=== PATIENT | male | born 1985 | race Caucasian/White ===

== ENCOUNTER 2019-10-05 04:21 | Inpatient (IN) | payer MEDICAID ==
[2019-10-05] VITALS (15 sets, daily range): BP systolic 123–147; BP diastolic 79–97
[~2019-10-05] VITALS: Ht 160 cm; Wt 76.0 kg
[~2019-10-05 04:21] MED LIST: BENZ-16 PO; POTA20TA19 PO
[2019-10-05] MEDS ORDERED: morphine 4 MG/ML inj SYRINge IV PRN (04:30)
[2019-10-05] MEDS ORDERED: ringers solution, lactated 1000ml IV soln IV ONE (04:30)
[2019-10-05] MEDS ORDERED: LIDOcaine 1% W/epiNEPHrine 1:100,000 20ml vial SQ ONE (04:30)
[2019-10-05] MEDS ORDERED: sodium bicarbonate (8.4%) inj. 100 MEQ in sodium chloride 0.45% 1,000 ML IV ONE (04:35)
[2019-10-05 04:53] LABS: BASOPHILS % (AUTO) 0.1 % (0-1); EOSINOPHILS % (AUTO) 0 % (0-6); HEMATOCRIT 43.7 % (42.0-52.0); HEMOGLOBIN 15.4 g/dl (14.0-17.9); LYMPHOCYTES # (AUTO) 0.6 X10'3 (1.1-4.8); LYMPHOCYTES % (AUTO) 3.1 % (21-51); MEAN CORPUSCULAR HEMOGLOBIN 32.1 PG (27.0-31.0); MEAN CORPUSCULAR HGB CONC 35.1 g/dL (33.0-36.5); MEAN CORPUSCULAR VOLUME 91.5 FL (78-98); MEAN PLATELET VOLUME 9.1 FL (7.4-10.4); MONOCYTES # (AUTO) 1.7 X10'3 (0-0.9); MONOCYTES % (AUTO) 9.2 % (2-12); NEUTROPHILS # (AUTO) 16.1 X10'3 (1.8-7.7); NEUTROPHILS % (AUTO) 87.6 % (42-75); PLATELET COUNT 195 X10'3 (140-440); RED BLOOD COUNT 4.78 X10'6 (4.70-6.10); RED CELL DISTRIBUTION WIDTH 13.4 % (11.5-14.5); WHITE BLOOD COUNT 18.4 X10'3 (4.5-11.0)
[2019-10-05 05:03] LABS: ALANINE AMINOTRANSFERASE 441 U/L (12-78); ALBUMIN 4.3 G/DL (3.4-5.0); ALBUMIN/GLOBULIN RATIO 1.1 (1.1-1.5); ALKALINE PHOSPHATASE 73 IU/L (46-116); ANION GAP 22 (8-16); BLOOD UREA NITROGEN 104 MG/DL (7-18); BUN/CREATININE RATIO 14.6 (5.4-32.0); CALCIUM 6.7 MG/DL (8.5-10.1); CHLORIDE 83 MMOL/L (99-107); CREATININE 7.12 MG/DL (0.60-1.10); GLUCOSE 119 MG/DL (70-104); POTASSIUM 5.5 MMOL/L (3.5-5.1); SODIUM 123 MMOL/L (135-145); TOTAL PROTEIN 8.2 G/DL (6.4-8.2); eGFR 9 ML/MIN
[2019-10-05 05:08] LABS: MAGNESIUM 3.2 MG/DL (1.5-2.4)
[2019-10-05] MEDS ORDERED: TETanus/Pertussis (Acell)/Diphther VAC/PF (Tdap-Adult) 0.5ml syringe IMVAC ONE (05:25)
[2019-10-05] MEDS ORDERED: CefTRIAXone 2gm/D5W 50ml 50 ML IV ONE (05:30)
[2019-10-05 05:37] LABS: ETHANOL < 0.010 GM/DL (0.0-0.010)
[2019-10-05 05:38] LABS: ASPARTATE AMINO TRANSFERASE 1324 U/L (10-37)
[2019-10-05] MEDS: SODIUM CHLORIDE 0.45% IV SCH ×3 (06:12→20:08)
[2019-10-05] MEDS: SODIUM BICARBONATE IV SCH ×3 (06:12→20:08)
[2019-10-05] MEDS ORDERED: acetaminophen 325mg tablet PO PRN ×2 (06:30)
[2019-10-05] MEDS ORDERED: LORazepam 2 mg/ml vial IV PRN (06:30)
[2019-10-05] MEDS ORDERED: sodium bicarbonate (8.4%) inj. 150 MEQ in dextrose 5%-water 1,000 ML IV SCH (06:30)
[2019-10-05] MEDS ORDERED: ondansetron/PF 4mg/2ml inj IV PRN (06:30)
[2019-10-05] MEDS ORDERED: acetaminophen 650mg rectal suppository RC PRN (06:30)
--- NOTE | 2019-10-05 06:30 | NUR ---
SBAR received from MISBAH RN. Pt resting in bed. at bedside. Pt has been refusing F/C placement, education and rationale provided but pt continue to refuse. Labs drawn and sent.
[2019-10-05 06:32] LABS: CREATINE KINASE 77585 U/L (39-308)
[2019-10-05 07:13] LABS: PARTIAL THROMBOPLASTIN TIME 26 SECONDS (22-32)
[2019-10-05] MEDS ORDERED: calcium gluconate inj. 1 GM in normal saline 100ml IV soln 90 ML IV ONE ×2 (07:15→21:35)
[2019-10-05] MEDS ORDERED: ESCI20TA38 PO (07:19)
[2019-10-05] MEDS ORDERED: HYDR-3686 PO (07:19)
[2019-10-05] MEDS ORDERED: LORAZEPAM (07:19)
[2019-10-05 07:30] LABS: ALBUMIN 3.4 G/DL (3.4-5.0); ANION GAP 21 (8-16); BLOOD UREA NITROGEN 104 MG/DL (7-18); BUN/CREATININE RATIO 16.2 (5.4-32.0); CHLORIDE 86 MMOL/L (99-107); CREATININE 6.43 MG/DL (0.60-1.10); GLUCOSE 93 MG/DL (70-104); POTASSIUM 5.1 MMOL/L (3.5-5.1); SODIUM 124 MMOL/L (135-145); TOTAL CARBON DIOXIDE 17.2 MMOL/L (24-32); eGFR 10 ML/MIN
[2019-10-05 07:32] LABS: CALCIUM 5.9 MG/DL (8.5-10.1); PHOSPHORUS 11.2 MG/DL (2.3-4.5)
[2019-10-05] MEDS: docusate sod 100mg capsule PO SCH ×2 (08:00→20:01)
[2019-10-05] MEDS: silver sulfadiazine cream 400gm jar TP SCH (08:00)
--- NOTE | 2019-10-05 08:30 | NUR ---
Pt arrived from ED via gurney. Pt requested hygiene supplies. Vitals obtained, pt left to wash self with warm wash clothes. Pt states that he has mild pain from his muniz and complains of bilateral feet pain.
[2019-10-05] MEDS ORDERED: LORA-269 PO (09:35)
[2019-10-05] MEDS: CefTRIAXone 2gm/D5W 50ml 50 ML IV SCH (09:58)
[2019-10-05] MEDS: heparin, porcine 5000 units/ml vial SQ SCH ×2 (10:00→20:02)
[2019-10-05] MEDS: famotidine 20mg tablet PO SCH ×2 (10:00→20:01)
--- NOTE | 2019-10-05 13:20 | NUR ---
Attempted to place 16 Fr Faria catheter, encountered significant resistance, pt reported pain. Reported to Dr. Sims, received orders for Coude' Cath placement.
--- NOTE | 2019-10-05 13:40 | NUR ---
Pt stood up at bedside, water left running in room sink. Pt able to void in urinal 520 mL brown urine.
[2019-10-05 14:08] LABS: TOTAL PROTEIN,URINE RANDOM 150.4 MG/DL
[2019-10-05 14:11] LABS: URINE AMPHETAMINE SCREEN POSITIVE (Neg); URINE BARBITUATE SCREEN NEGATIVE (Neg); URINE BENZODIAZEPINES SCREEN NEGATIVE (Neg); URINE CANNABINOID SCREEN NEGATIVE (Neg); URINE COCAINE SCREEN NEGATIVE (Neg); URINE METHADONE SCREEN NEGATIVE (Neg); URINE OPIATE SCREEN POSITIVE (Neg); URINE PHENCYCLIDINE SCREEN NEGATIVE (Neg)
[2019-10-05 14:12] LABS: CLARITY,URINE TURBID (Clear); COLOR,URINE YELLOW (Yellow); GLUCOSE, URINE NEGATIVE (Neg); KETONES,URINE NEGATIVE (Neg); LEUKOCYTE ESTERASE ,URINE NEGATIVE (Neg); NITRITES, URINE NEGATIVE (Neg); OCCULT BLOOD,URINE LARGE (Neg); PH,URINE 5.5 (4.8-8.0); PROTEIN,URINE 100 mg/dl (Neg); UROBILINOGEN,URINE 0.2 E.U/dL (0.2-1.0)
[2019-10-05 14:16] LABS: UA COLLECTION TYPE CLN CATCH MIDSTREAM
[2019-10-05 14:33] LABS: FINE GRANULAR CAST 0-3 /LPF (NEGATIVE); MUCUS STRANDS NONE SEEN /LPF (Neg); SQUAMOUS EPITHELIAL CELL,UR NONE SEEN /LPF (FEW); TRANSITIONAL EPI CELLS,URINE FEW /HPF
[2019-10-05 14:36] LABS: AMORPHOUS URATES 4+; RENAL CELLS, URINE MODERATE /HPF
[2019-10-05 14:37] LABS: BACTERIA,URINE NONE SEEN /HPF (Neg); WBC,URINE 0-4 /HPF (0-4)
[2019-10-05 14:38] LABS: CAL OXALATE CRYSTALS FEW /HPF (NEGATIVE)
[2019-10-05 14:55] LABS: UA EOSINOPHILS NO EOS /HPF
[2019-10-05 15:07] LABS: ALBUMIN 3.3 G/DL (3.4-5.0); ANION GAP 21 (8-16); BLOOD UREA NITROGEN 110 MG/DL (7-18); BUN/CREATININE RATIO 16.9 (5.4-32.0); CHLORIDE 81 MMOL/L (99-107); CREATININE 6.51 MG/DL (0.60-1.10); GLUCOSE 111 MG/DL (70-104); POTASSIUM 5.3 MMOL/L (3.5-5.1); SODIUM 123 MMOL/L (135-145); TOTAL CARBON DIOXIDE 21.1 MMOL/L (24-32); eGFR 10 ML/MIN
[2019-10-05 15:09] LABS: PHOSPHORUS 10.6 MG/DL (2.3-4.5)
[2019-10-05 15:15] LABS: CALCIUM 5.6 MG/DL (8.5-10.1)
--- NOTE | 2019-10-05 18:19 | NUR ---
Problems reprioritized. Patient report given, questions answered & plan of care reviewed with SANJANA Sibley.
--- NOTE | 2019-10-05 18:22 | NUR ---
assumed care from Martinez ALLAN no questions or concerns after assuming care
--- NOTE | 2019-10-05 19:15 | NUR ---
patient "not in mood for dinner." put in refrigerator will ask patient later if they want to eat dinner
[2019-10-05 19:22] LABS: ANION GAP 19 (8-16); BLOOD UREA NITROGEN 115 MG/DL (7-18); BUN/CREATININE RATIO 17.1 (5.4-32.0); CHLORIDE 84 MMOL/L (99-107); CREATININE 6.74 MG/DL (0.60-1.10); GLUCOSE 92 MG/DL (70-104); POTASSIUM 4.8 MMOL/L (3.5-5.1); SODIUM 124 MMOL/L (135-145); TOTAL CARBON DIOXIDE 20.8 MMOL/L (24-32); eGFR 9 ML/MIN
[2019-10-05 19:31] LABS: CALCIUM < 5.0 MG/DL (8.5-10.1)
--- NOTE | 2019-10-05 21:14 | NUR ---
patient in bed eyes closed rr even un labored no observable s/s of acute stress at this time will continue to monitor
--- NOTE | 2019-10-05 21:34 | NUR ---
called thuy CESPEDES due to the ionized calcium results 0.55, waiting for orders to replace
--- NOTE | 2019-10-05 23:41 | NUR ---
PATIENT UP USING URINAL RR EVEN UN LABORED REFUSING PAIN MEDICATION, PATIENT SHOWING MILD PAIN BEHAVIOR BUT WHEN ASKED IF THEY NEED SOMETHING FOR THE PAIN PATIENT STATES" NO I AM GOOD I WANT TO TRY AND NOT TAKE ANY NARCS." I VERBALIZED TO THE PATIENT THERE IS ORDER FOR TYLENOL, PATIENT STATES " THANKS BUT I AM GOOD NOW, I WILL HIT CALL LIGHT IF I NEED THE TYLENOL I AM GOING TO TRY AND SLEEP." NO OBSERVABLE S/S OF ACUTE STRESS WILL CONTINUE TO MONITOR
[2019-10-06] VITALS (24 sets, daily range): BP systolic 122–147; BP diastolic 74–96
--- NOTE | 2019-10-06 01:52 | NUR ---
PATIENT IN BED SUPINE WITH EYES CLOSED RR EVEN UN LABORED PATIENT DENYING ANY NEED TO USE PAIN MEDICATION, NO OBSERVABLE S/S OF ACUTE STRESS AT THIS TIME WILL CONTINUE TO MONITOR
[2019-10-06 02:32] LABS: ALANINE AMINOTRANSFERASE 351 U/L (12-78); ALBUMIN 2.9 G/DL (3.4-5.0); ALBUMIN/GLOBULIN RATIO 0.9 (1.1-1.5); ALKALINE PHOSPHATASE 49 IU/L (46-116); ANION GAP 20 (8-16); ASPARTATE AMINO TRANSFERASE 831 U/L (10-37); BILIRUBIN,TOTAL 0.6 MG/DL (0.1-1.0); BLOOD UREA NITROGEN 118 MG/DL (7-18); BUN/CREATININE RATIO 17.5 (5.4-32.0); CHLORIDE 83 MMOL/L (99-107); CREATININE 6.73 MG/DL (0.60-1.10); GLUCOSE 109 MG/DL (70-104); MAGNESIUM 2.4 MG/DL (1.5-2.4); POTASSIUM 5.3 MMOL/L (3.5-5.1); SODIUM 125 MMOL/L (135-145); eGFR 9 ML/MIN
[2019-10-06 02:38] LABS: PHOSPHORUS 9.9 MG/DL (2.3-4.5)
[2019-10-06 02:40] LABS: CALCIUM < 5.0 MG/DL (8.5-10.1)
[2019-10-06] MEDS ORDERED: calcium gluconate inj. 1 GM in normal saline 100ml IV soln 90 ML IV ONE ×2 (02:45→03:20)
[2019-10-06 03:12] LABS: CREATINE KINASE 53758 U/L (39-308)
[2019-10-06] MEDS: SODIUM CHLORIDE 0.45% IV SCH ×3 (03:12→20:23)
[2019-10-06] MEDS: SODIUM BICARBONATE IV SCH ×3 (03:12→20:23)
--- NOTE | 2019-10-06 04:36 | NUR ---
PATIENT IN BED ON LEFT SIDE EYES CLOSED RR EVEN UN LABORED NO OBSERVABLE S/S OF ACUTE STRESS AT THIS TIME
[2019-10-06 05:18] LABS: BASOPHILS % (AUTO) 0.2 % (0-1); EOSINOPHILS % (AUTO) 0 % (0-6); HEMATOCRIT 36.9 % (42.0-52.0); HEMOGLOBIN 13.1 g/dl (14.0-17.9); LYMPHOCYTES # (AUTO) 0.4 X10'3 (1.1-4.8); LYMPHOCYTES % (AUTO) 6.7 % (21-51); MEAN CORPUSCULAR HEMOGLOBIN 32.7 PG (27.0-31.0); MEAN CORPUSCULAR HGB CONC 35.6 g/dL (33.0-36.5); MEAN CORPUSCULAR VOLUME 91.8 FL (78-98); MEAN PLATELET VOLUME 8.9 FL (7.4-10.4); MONOCYTES # (AUTO) 0.9 X10'3 (0-0.9); MONOCYTES % (AUTO) 15.4 % (2-12); NEUTROPHILS # (AUTO) 4.3 X10'3 (1.8-7.7); NEUTROPHILS % (AUTO) 77.7 % (42-75); PLATELET COUNT 118 X10'3 (140-440); RED BLOOD COUNT 4.01 X10'6 (4.70-6.10); RED CELL DISTRIBUTION WIDTH 13.5 % (11.5-14.5); WHITE BLOOD COUNT 5.6 X10'3 (4.5-11.0)
[2019-10-06 05:59] LABS: PLATELET ESTIMATE DECREASED
--- NOTE | 2019-10-06 06:20 | NUR ---
SBAR TO HELEN ALLAN NO QUESTIONS OR CONCERNS AFTER SBAR
--- NOTE | 2019-10-06 06:30 | NUR ---
Patient in room CICU 2009. I have received report from SANJANA Sibley and had the opportunity to ask questions and assume patient care.
[2019-10-06] MEDS: silver sulfadiazine cream 400gm jar TP SCH (08:00)
[2019-10-06] MEDS: heparin, porcine 5000 units/ml vial SQ SCH ×2 (08:36→20:22)
[2019-10-06] MEDS: docusate sod 100mg capsule PO SCH ×2 (08:36→20:00)
[2019-10-06] MEDS: famotidine 20mg tablet PO SCH ×2 (08:37→20:21)
[2019-10-06] MEDS: CefTRIAXone 2gm/D5W 50ml 50 ML IV SCH (08:37)
[2019-10-06 09:52] LABS: BASOPHILS % (AUTO) 0.2 % (0-1); EOSINOPHILS % (AUTO) 0.1 % (0-6); HEMATOCRIT 37.4 % (42.0-52.0); HEMOGLOBIN 13.3 g/dl (14.0-17.9); LYMPHOCYTES # (AUTO) 0.3 X10'3 (1.1-4.8); LYMPHOCYTES % (AUTO) 4.7 % (21-51); MEAN CORPUSCULAR HEMOGLOBIN 32.5 PG (27.0-31.0); MEAN CORPUSCULAR HGB CONC 35.6 g/dL (33.0-36.5); MEAN CORPUSCULAR VOLUME 91.4 FL (78-98); MEAN PLATELET VOLUME 8.9 FL (7.4-10.4); MONOCYTES # (AUTO) 0.9 X10'3 (0-0.9); MONOCYTES % (AUTO) 15.5 % (2-12); NEUTROPHILS # (AUTO) 4.9 X10'3 (1.8-7.7); NEUTROPHILS % (AUTO) 79.5 % (42-75); PLATELET COUNT 127 X10'3 (140-440); RED BLOOD COUNT 4.09 X10'6 (4.70-6.10); RED CELL DISTRIBUTION WIDTH 13.6 % (11.5-14.5); WHITE BLOOD COUNT 6.1 X10'3 (4.5-11.0)
[2019-10-06 10:15] LABS: ALBUMIN 2.9 G/DL (3.4-5.0); ANION GAP 19 (8-16); BLOOD UREA NITROGEN 121 MG/DL (7-18); BUN/CREATININE RATIO 17.9 (5.4-32.0); CHLORIDE 85 MMOL/L (99-107); CREATININE 6.77 MG/DL (0.60-1.10); GLUCOSE 92 MG/DL (70-104); PHOSPHORUS 8.9 MG/DL (2.3-4.5); SODIUM 128 MMOL/L (135-145); TOTAL CARBON DIOXIDE 24.4 MMOL/L (24-32); eGFR 9 ML/MIN
[2019-10-06] MEDS ORDERED: LIDOcaine 2% 10ml TOPICAL JELLY (Urojet) MM ONE (10:30)
[2019-10-06 11:22] LABS: CREATINE KINASE 49334 U/L (39-308)
--- NOTE | 2019-10-06 12:30 | NUR ---
18 Fr Coude placed, 1300 mL dark yellow urine obtained, pt reports instant relief.
[2019-10-06 13:17] LABS: ALBUMIN 2.7 G/DL (3.4-5.0); ANION GAP 15 (8-16); BLOOD UREA NITROGEN 116 MG/DL (7-18); BUN/CREATININE RATIO 17.6 (5.4-32.0); CHLORIDE 86 MMOL/L (99-107); GLUCOSE 96 MG/DL (70-104); PHOSPHORUS 8.3 MG/DL (2.3-4.5); SODIUM 126 MMOL/L (135-145); eGFR 10 ML/MIN
[2019-10-06 14:10] LABS: CALCIUM < 5.0 MG/DL (8.5-10.1)
--- NOTE | 2019-10-06 18:14 | NUR ---
Problems reprioritized. Patient report given, questions answered & plan of care reviewed with SANJANA Sibley.
--- NOTE | 2019-10-06 18:15 | NUR ---
assumed care from Martinez ALLAN no questions or concerns after assuming care
[2019-10-06 20:05] LABS: ALBUMIN 2.8 G/DL (3.4-5.0); ANION GAP 17 (8-16); BLOOD UREA NITROGEN 118 MG/DL (7-18); BUN/CREATININE RATIO 18.7 (5.4-32.0); CHLORIDE 85 MMOL/L (99-107); GLUCOSE 110 MG/DL (70-104); PHOSPHORUS 7.4 MG/DL (2.3-4.5); POTASSIUM 4.7 MMOL/L (3.5-5.1); SODIUM 128 MMOL/L (135-145); TOTAL CARBON DIOXIDE 25.7 MMOL/L (24-32); eGFR 10 ML/MIN
[2019-10-06 20:09] LABS: CALCIUM < 5.0 MG/DL (8.5-10.1)
[2019-10-06] MEDS: lactobacillus rhamnosus 10,000 MMU CELLS/CAPSULE PO SCH (20:21)
--- NOTE | 2019-10-06 20:30 | NUR ---
PATIENT RESTING COMFORTABLY IN BED EYES CLOSED LYING ON LEFT SIDE RR EVEN UN LABORED NO OBSERVABLE S/S OF ACUTE STRESS AT THIS TIME WILL CONTINUE TO MONITOR
--- NOTE | 2019-10-06 22:30 | NUR ---
PATIENT ON BACK IN BED COVERS ON EYES CLOSED RR EVEN UN LABORED NO OBSERVABLE S/S OF ACUTE STRESS AT THIS TIME WILL CONTINUE TO MONITOR
[2019-10-07] VITALS (16 sets, daily range): BP systolic 125–155; BP diastolic 71–98
--- NOTE | 2019-10-07 00:36 | NUR ---
IN DRAWING PATIENTS RENAL PANEL APPEARS PATIENT IS IN GOOD MOOD FOLLOWING COMMANDS AND ASKING QUESTIONS ON HIS CARE AND HOW HE IS LOOKING APPEARS TO BE CONCERNED ABOUT HIS HEALTH, AFTER DISCUSSING WITH PATIENT AND UPDATING ON HI S KIDNEY STATUS HE STATED "THANK YOU FOR EMPLANING." PATIENTS RR EVEN UN LABORED NO OBSERVABLE S/S OF ACUTE STRESS AT THIS TIME WILL CONTINUE TO MONITOR
[2019-10-07 01:13] LABS: ALANINE AMINOTRANSFERASE 299 U/L (12-78); ALBUMIN 2.6 G/DL (3.4-5.0); ALBUMIN/GLOBULIN RATIO 0.8 (1.1-1.5); ALKALINE PHOSPHATASE 45 IU/L (46-116); ANION GAP 12 (8-16); ASPARTATE AMINO TRANSFERASE 567 U/L (10-37); BILIRUBIN,TOTAL 0.4 MG/DL (0.1-1.0); BLOOD UREA NITROGEN 114 MG/DL (7-18); BUN/CREATININE RATIO 18.7 (5.4-32.0); CHLORIDE 88 MMOL/L (99-107); GLUCOSE 106 MG/DL (70-104); MAGNESIUM 2.3 MG/DL (1.5-2.4); PHOSPHORUS 6.9 MG/DL (2.3-4.5); POTASSIUM 4.3 MMOL/L (3.5-5.1); SODIUM 130 MMOL/L (135-145); TOTAL CARBON DIOXIDE 29.7 MMOL/L (24-32); TOTAL PROTEIN 5.8 G/DL (6.4-8.2); eGFR 10 ML/MIN
[2019-10-07 01:20] LABS: CALCIUM < 5.0 MG/DL (8.5-10.1)
[2019-10-07 01:50] LABS: CREATINE KINASE 41378 U/L (39-308)
[2019-10-07 02:29] LABS: BASOPHILS % (AUTO) 0.1 % (0-1); EOSINOPHILS % (AUTO) 0 % (0-6); HEMATOCRIT 34.5 % (42.0-52.0); LYMPHOCYTES # (AUTO) 0.4 X10'3 (1.1-4.8); LYMPHOCYTES % (AUTO) 6.4 % (21-51); MEAN CORPUSCULAR HEMOGLOBIN 32.2 PG (27.0-31.0); MEAN CORPUSCULAR HGB CONC 34.8 g/dL (33.0-36.5); MEAN CORPUSCULAR VOLUME 92.5 FL (78-98); MEAN PLATELET VOLUME 9.1 FL (7.4-10.4); MONOCYTES % (AUTO) 15.5 % (2-12); NEUTROPHILS # (AUTO) 4.9 X10'3 (1.8-7.7); PLATELET COUNT 99 X10'3 (140-440); RED BLOOD COUNT 3.73 X10'6 (4.70-6.10); RED CELL DISTRIBUTION WIDTH 13.2 % (11.5-14.5); WHITE BLOOD COUNT 6.3 X10'3 (4.5-11.0)
--- NOTE | 2019-10-07 02:35 | NUR ---
PATIENT IN BED EYES CLOSED RR EVEN UN LABORED NO OBSERVABLE S/S OF ACUTE STRESS AT THIS TIME WILL CONTINUE TO MONITOR
[2019-10-07] MEDS: SODIUM BICARBONATE IV SCH ×3 (04:35→19:41)
[2019-10-07] MEDS: SODIUM CHLORIDE 0.45% IV SCH ×3 (04:35→19:41)
--- NOTE | 2019-10-07 04:57 | NUR ---
PATIENT IN BED SUPINE WITH HOB AT 45 DEGREES ASKED FOR SOME ICE WATER AND A SNACK, PATIENTS RR EVEN UN LABORED NO OBSERVABLE S/S OF ACUTE STRESS AT THIS TIME WILL CONTINUE TO MONITOR
--- NOTE | 2019-10-07 06:29 | NUR ---
SBAR TO GARRY ALLAN NO QUESTIONS OR CONCERNS AFTER ASSUMING CARE
[2019-10-07] MEDS ORDERED: lactulose 20gm/30ml cup PO PRN (06:30)
[2019-10-07 07:22] LABS: ALBUMIN 2.4 G/DL (3.4-5.0); ANION GAP 9 (8-16); BLOOD UREA NITROGEN 110 MG/DL (7-18); BUN/CREATININE RATIO 19.5 (5.4-32.0); CHLORIDE 91 MMOL/L (99-107); CREATININE 5.63 MG/DL (0.60-1.10); GLUCOSE 120 MG/DL (70-104); SODIUM 130 MMOL/L (135-145); TOTAL CARBON DIOXIDE 29.7 MMOL/L (24-32); eGFR 12 ML/MIN
[2019-10-07 07:35] LABS: CREATINE KINASE 32573 U/L (39-308)
[2019-10-07 07:40] LABS: CALCIUM < 5.0 MG/DL (8.5-10.1)
[2019-10-07] MEDS: silver sulfadiazine cream 400gm jar TP SCH (08:00)
[2019-10-07] MEDS: docusate sod 100mg capsule PO SCH ×2 (08:00→20:49)
[2019-10-07] MEDS: heparin, porcine 5000 units/ml vial SQ SCH ×2 (08:58→20:49)
[2019-10-07] MEDS: famotidine 20mg tablet PO SCH ×2 (08:58→20:49)
[2019-10-07] MEDS: lactobacillus rhamnosus 10,000 MMU CELLS/CAPSULE PO SCH ×2 (08:58→20:49)
[2019-10-07] MEDS: CefTRIAXone 2gm/D5W 50ml 50 ML IV SCH (08:58)
--- NOTE | 2019-10-07 10:30 | NUR ---
Patient refusing hourly blood pressure checks, stating "How does this help me rest and heal if it wakes me up every hour? This is ridiculous!". Patient allowing other vitals at this time. Patient allowing spot check blood pressure readings while awake. MD aware.
[2019-10-07] MEDS ORDERED: LORazepam 1 MG tablet PO PRN (10:55)
[2019-10-07] MEDS ORDERED: hydrOXYzine 25 MG tablet PO PRN (10:55)
[2019-10-07] MEDS: citalopram 20mg tablet PO SCH (11:01)
--- NOTE | 2019-10-07 13:11 | NUR ---
WOUND INFECTION EDUCATION PROVIDED BY WOUND CARE 1. Patient instructed to call their primary doctor, or go the ED immediately if any of the following symptoms occur: * Increased pain in wound * Increase in drainage from the wound * Redness in the skin surrounding the wound * Warmth in the skin surrounding the wound * Bleeding from the wound * Temperature of 101 or greater 2. If any of these occur while in the hospital tell a nurse immediately. Addendum: 10/07/19 at 1311 by John Juan RN Amended: Links added.
--- NOTE | 2019-10-07 13:47 | NUR ---
I have received report from Armando KAPLAN RN and had the opportunity to ask questions. Awaiting pt arrival to PCU.
--- NOTE | 2019-10-07 14:30 | NUR ---
Pt arrived on unit and settled in room 3024B. Vital signs taken and pain assessed, family present at the bedside. 2 RN skin check and physical assessment performed. Needs addressed, will continue to frequently round.
--- NOTE | 2019-10-07 16:19 | NUR ---
[place] documentation: I have reviewed and agree with all interventions, assessments performed and documented by SANJANA Odonnell. [facility] Medication Administration: For this medication-pass time frame, all medication were reviewed, dispensed, administered and documented per hospital policy by SANJANA Odonnell.
--- NOTE | 2019-10-07 18:10 | NUR ---
Problems reprioritized. Patient report given, questions answered & plan of care reviewed with Marbella ALLAN.
[2019-10-07] MEDS: tamsulosin 0.4mg capsule PO SCH (20:49)
[2019-10-07] MEDS: HYDROcodone/acetaminophen 5mg/325mg tablet PO PRN (20:52)
[2019-10-08] MEDS: SODIUM CHLORIDE 0.45% IV SCH ×2 (00:06→17:21)
[2019-10-08] MEDS: SODIUM BICARBONATE IV SCH ×2 (00:06→17:21)
[2019-10-08 03:00] VITALS: BP 146/76
[2019-10-08 06:00] VITALS: BP 164/90
[2019-10-08 06:06] LABS: BASOPHILS % (AUTO) 0 % (0-1); EOSINOPHILS % (AUTO) 0.6 % (0-6); HEMATOCRIT 30.6 % (42.0-52.0); HEMOGLOBIN 10.5 g/dl (14.0-17.9); LYMPHOCYTES # (AUTO) 0.6 X10'3 (1.1-4.8); LYMPHOCYTES % (AUTO) 9.4 % (21-51); MEAN CORPUSCULAR HEMOGLOBIN 32.4 PG (27.0-31.0); MEAN CORPUSCULAR HGB CONC 34.3 g/dL (33.0-36.5); MEAN CORPUSCULAR VOLUME 94.4 FL (78-98); MEAN PLATELET VOLUME 9.3 FL (7.4-10.4); MONOCYTES % (AUTO) 15.2 % (2-12); NEUTROPHILS % (AUTO) 74.8 % (42-75); PLATELET COUNT 89 X10'3 (140-440); RED BLOOD COUNT 3.24 X10'6 (4.70-6.10); RED CELL DISTRIBUTION WIDTH 13.4 % (11.5-14.5); WHITE BLOOD COUNT 6.7 X10'3 (4.5-11.0)
--- NOTE | 2019-10-08 06:16 | NUR ---
Problems reprioritized. Patient report given, questions answered & plan of care reviewed with Sapna ALLAN.
--- NOTE | 2019-10-08 06:21 | NUR ---
Patient in room PCU 3024. I have received report from Marbella ALLAN and had the opportunity to ask questions and assume patient care. All patient's needs met at this time.
[2019-10-08 07:09] LABS: ALANINE AMINOTRANSFERASE 233 U/L (12-78); ALBUMIN 2.4 G/DL (3.4-5.0); ALBUMIN/GLOBULIN RATIO 0.8 (1.1-1.5); ALKALINE PHOSPHATASE 59 IU/L (46-116); ANION GAP 7 (8-16); ASPARTATE AMINO TRANSFERASE 361 U/L (10-37); BILIRUBIN,TOTAL 0.4 MG/DL (0.1-1.0); BLOOD UREA NITROGEN 86 MG/DL (7-18); CHLORIDE 92 MMOL/L (99-107); GLUCOSE 99 MG/DL (70-104); MAGNESIUM 2.2 MG/DL (1.5-2.4); PHOSPHORUS 4.8 MG/DL (2.3-4.5); POTASSIUM 3.4 MMOL/L (3.5-5.1); SODIUM 134 MMOL/L (135-145); TOTAL PROTEIN 5.4 G/DL (6.4-8.2); eGFR 16 ML/MIN
[2019-10-08 07:45] LABS: CREATINE KINASE 25030 U/L (39-308)
[2019-10-08 07:48] LABS: CALCIUM 5.4 MG/DL (8.5-10.1)
[2019-10-08] MEDS: silver sulfadiazine cream 400gm jar TP SCH (08:00)
[2019-10-08] MEDS: citalopram 20mg tablet PO SCH (08:00)
[2019-10-08] MEDS: heparin, porcine 5000 units/ml vial SQ SCH ×2 (08:00→20:00)
[2019-10-08] MEDS: docusate sod 100mg capsule PO SCH ×2 (08:00→20:17)
[2019-10-08] MEDS: CefTRIAXone 2gm/D5W 50ml 50 ML IV SCH (08:51)
[2019-10-08] MEDS: famotidine 20mg tablet PO SCH ×2 (08:51→20:17)
[2019-10-08] MEDS: lactobacillus rhamnosus 10,000 MMU CELLS/CAPSULE PO SCH ×2 (08:52→20:17)
[2019-10-08] MEDS: HYDROcodone/acetaminophen 10/325mg tab PO PRN ×2 (09:00→17:31)
[2019-10-08 11:00] VITALS: BP 163/81
--- NOTE | 2019-10-08 11:52 | NUR ---
Student documentation: I have reviewed all interventions, assessments performed and documented by [facility]. Student Medication Administration: For this medication-pass time frame, all medication were reviewed, dispensed, administered and documented per hospital policy by [facility].
--- NOTE | 2019-10-08 12:15 | NUR ---
Removed patient's catheter with no complications, will continue to monitor for urine output.
[2019-10-08 15:00] VITALS: BP_SYST 128; BP_SYST 162; BP_DIAS 66; BP_DIAS 70
[2019-10-08 18:00] VITALS: BP 176/72
--- NOTE | 2019-10-08 18:26 | NUR ---
Problems reprioritized. Patient report given, questions answered & plan of care reviewed with Marbella ALLAN. All patient's needs met at this time.
[2019-10-08] MEDS: gabapentin 100mg capsule PO SCH (20:17)
[2019-10-08] MEDS: tamsulosin 0.4mg capsule PO SCH (20:17)
[2019-10-08 22:00] VITALS: BP 149/68
[2019-10-09 02:00] VITALS: BP 172/76
[2019-10-09 02:50] LABS: BASOPHILS % (AUTO) 0.1 % (0-1); EOSINOPHILS # (AUTO) 0.2 X10'3 (0-0.9); EOSINOPHILS % (AUTO) 2.8 % (0-6); HEMATOCRIT 30.5 % (42.0-52.0); HEMOGLOBIN 10.5 g/dl (14.0-17.9); LYMPHOCYTES # (AUTO) 0.9 X10'3 (1.1-4.8); LYMPHOCYTES % (AUTO) 13.7 % (21-51); MEAN CORPUSCULAR HEMOGLOBIN 32.4 PG (27.0-31.0); MEAN CORPUSCULAR HGB CONC 34.3 g/dL (33.0-36.5); MEAN CORPUSCULAR VOLUME 94.6 FL (78-98); MEAN PLATELET VOLUME 9.2 FL (7.4-10.4); MONOCYTES % (AUTO) 16.3 % (2-12); NEUTROPHILS # (AUTO) 4.3 X10'3 (1.8-7.7); NEUTROPHILS % (AUTO) 67.1 % (42-75); PLATELET COUNT 97 X10'3 (140-440); RED BLOOD COUNT 3.22 X10'6 (4.70-6.10); RED CELL DISTRIBUTION WIDTH 13.3 % (11.5-14.5); WHITE BLOOD COUNT 6.4 X10'3 (4.5-11.0)
[2019-10-09 02:59] LABS: ALANINE AMINOTRANSFERASE 239 U/L (12-78); ALBUMIN 2.5 G/DL (3.4-5.0); ALBUMIN/GLOBULIN RATIO 0.8 (1.1-1.5); ALKALINE PHOSPHATASE 64 IU/L (46-116); ANION GAP 3 (8-16); ASPARTATE AMINO TRANSFERASE 348 U/L (10-37); BILIRUBIN,TOTAL 0.3 MG/DL (0.1-1.0); BLOOD UREA NITROGEN 73 MG/DL (7-18); CHLORIDE 95 MMOL/L (99-107); CREATININE 2.92 MG/DL (0.60-1.10); GLUCOSE 97 MG/DL (70-104); MAGNESIUM 1.9 MG/DL (1.5-2.4); PHOSPHORUS 4.2 MG/DL (2.3-4.5); POTASSIUM 3.2 MMOL/L (3.5-5.1); SODIUM 136 MMOL/L (135-145); TOTAL CARBON DIOXIDE 38.1 MMOL/L (24-32); TOTAL PROTEIN 5.8 G/DL (6.4-8.2); eGFR 25 ML/MIN
--- NOTE | 2019-10-09 03:24 | NUR ---
Notified RUBINA Thornton regarding patient's PLT count of 89 and still being on SQ Heparin. Tonight's dose held d/t pt being at less than 50% of admit PLT count. Also notified him of patient's K of 3.2 which is down from 3.4 yesterday. Due to patient's creatinine still being elevated at 2.92 no new orders given
[2019-10-09 03:32] LABS: CREATINE KINASE 16867 U/L (39-308)
[2019-10-09 03:43] LABS: TOTAL CELLS COUNTED 100
[2019-10-09 03:44] LABS: PLATELET ESTIMATE DECREASED
--- NOTE | 2019-10-09 04:37 | NUR ---
Student Medication Administration: For this medication-pass time frame, all medication were reviewed, dispensed, administered and documented per hospital policy by Chasity MENJIVAR. Student documentation: I have reviewed and agree with all interventions, assessments performed and documented by Chasity MENJIVAR.
--- NOTE | 2019-10-09 06:04 | NUR ---
Problems reprioritized. Patient report given, questions answered & plan of care reviewed with Arsenio ALLAN.
--- NOTE | 2019-10-09 06:15 | NUR ---
Patient in room PCU 3024. I have received report from Marbella ALLAN and had the opportunity to ask questions and assume patient care.
[2019-10-09 06:56] VITALS: BP 166/71
[2019-10-09] MEDS: lactobacillus rhamnosus 10,000 MMU CELLS/CAPSULE PO SCH ×2 (07:46→20:08)
[2019-10-09] MEDS: docusate sod 100mg capsule PO SCH ×2 (07:46→20:00)
[2019-10-09] MEDS: gabapentin 100mg capsule PO SCH ×3 (07:46→20:08)
[2019-10-09] MEDS: famotidine 20mg tablet PO SCH ×2 (07:46→20:08)
[2019-10-09] MEDS: CefTRIAXone 2gm/D5W 50ml 50 ML IV SCH (07:47)
[2019-10-09] MEDS: HYDROcodone/acetaminophen 10/325mg tab PO PRN ×2 (07:49→20:11)
[2019-10-09] MEDS: SODIUM BICARBONATE IV SCH ×2 (07:51→23:27)
[2019-10-09] MEDS: SODIUM CHLORIDE 0.45% IV SCH ×2 (07:51→23:27)
[2019-10-09] MEDS: citalopram 20mg tablet PO SCH (07:59)
[2019-10-09] MEDS: heparin, porcine 5000 units/ml vial SQ SCH ×2 (08:00→20:00)
[2019-10-09] MEDS: silver sulfadiazine cream 400gm jar TP SCH (08:00)
[2019-10-09 11:00] VITALS: BP 195/90
--- NOTE | 2019-10-09 11:48 | NUR ---
Initial: Pt admit with VICTOR M probably d/t rhabdomyolysis per MD notes. VICTOR M improving per MD notes. Pt with muniz on admit. Per [facility] notes pt with partial thickness second degree muniz to arms, chest, and trunk of body. Pt currently on renal diet initially documented with 100% PO intake on admit that declined to 0-50% however has since improved and is now averaging 75-100% PO intake likely meeting nutrient needs with adequate protein for skin integrity. [facility] 10/08. No nutrition diagnosis at this time. Will continue to follow. Recommendations: 1) Continue renal diet with advancement to regular as medically indicated as renal function improves 2) Monitor need for ONS/additional protein 3) Routine bowel care Addendum: 10/09/19 at [address] Amended: Links added.
[2019-10-09] MEDS ORDERED: potassium CL 10mEq/100ml bag 100 ML IV PRN (12:55)
[2019-10-09] MEDS ORDERED: potassium Cl 20 mEq SR tablet PO PRN (12:55)
[2019-10-09] MEDS ORDERED: magnesium 4gm in 100ml NS 100 ML IV PRN (12:55)
--- NOTE | 2019-10-09 12:55 | NUR ---
Dr. Sims notified about Pt's blood pressures ranging 180-[address] Sims stated he will put an order in for it.
[2019-10-09] MEDS: potassium Cl 20 mEq SR tablet PO PRN ×3 (13:13→21:52)
[2019-10-09] MEDS: diltiazem CD 120mg capsule (once-daily) PO SCH (14:04)
[2019-10-09 15:00] VITALS: BP 140/72
[2019-10-09 18:00] VITALS: BP 142/86
--- NOTE | 2019-10-09 18:22 | NUR ---
Problems reprioritized. Patient report given, questions answered & plan of care reviewed with Estephania ALLAN.
--- NOTE | 2019-10-09 18:35 | NUR ---
Patient in room PCU 3024. I have received report from Arsenio ALLAN and had the opportunity to ask questions and assume patient care.
[2019-10-09] MEDS: tamsulosin 0.4mg capsule PO SCH (20:07)
[2019-10-09 22:00] VITALS: BP 139/67
[2019-10-10 02:00] VITALS: BP 161/73
[2019-10-10 06:20] LABS: BASOPHILS % (AUTO) 0.1 % (0-1); EOSINOPHILS # (AUTO) 0.3 X10'3 (0-0.9); EOSINOPHILS % (AUTO) 4.7 % (0-6); HEMOGLOBIN 11.4 g/dl (14.0-17.9); LYMPHOCYTES # (AUTO) 1.1 X10'3 (1.1-4.8); LYMPHOCYTES % (AUTO) 15.1 % (21-51); MEAN CORPUSCULAR HEMOGLOBIN 32.5 PG (27.0-31.0); MEAN CORPUSCULAR HGB CONC 34.4 g/dL (33.0-36.5); MEAN CORPUSCULAR VOLUME 94.5 FL (78-98); MONOCYTES # (AUTO) 1.4 X10'3 (0-0.9); MONOCYTES % (AUTO) 20.3 % (2-12); NEUTROPHILS # (AUTO) 4.3 X10'3 (1.8-7.7); NEUTROPHILS % (AUTO) 59.8 % (42-75); PLATELET COUNT 120 X10'3 (140-440); RED BLOOD COUNT 3.49 X10'6 (4.70-6.10); RED CELL DISTRIBUTION WIDTH 13.2 % (11.5-14.5); WHITE BLOOD COUNT 7.1 X10'3 (4.5-11.0)
--- NOTE | 2019-10-10 06:20 | NUR ---
Patient in room PCU 3024. I have received report from Joanne ALLAN and had the opportunity to ask questions and assume patient care.
--- NOTE | 2019-10-10 06:22 | NUR ---
Problems reprioritized. Patient report given, questions answered & plan of care reviewed with Arsenio ALLAN.
[2019-10-10 06:35] LABS: ALANINE AMINOTRANSFERASE 228 U/L (12-78); ALBUMIN 2.6 G/DL (3.4-5.0); ALBUMIN/GLOBULIN RATIO 0.8 (1.1-1.5); ALKALINE PHOSPHATASE 82 IU/L (46-116); ANION GAP 5 (8-16); ASPARTATE AMINO TRANSFERASE 240 U/L (10-37); BILIRUBIN,TOTAL 0.3 MG/DL (0.1-1.0); BLOOD UREA NITROGEN 48 MG/DL (7-18); BUN/CREATININE RATIO 26.4 (5.4-32.0); CALCIUM 8.3 MG/DL (8.5-10.1); CHLORIDE 98 MMOL/L (99-107); CREATININE 1.82 MG/DL (0.60-1.10); GLUCOSE 85 MG/DL (70-104); MAGNESIUM 1.4 MG/DL (1.5-2.4); PHOSPHORUS 3.1 MG/DL (2.3-4.5); POTASSIUM 3.7 MMOL/L (3.5-5.1); SODIUM 139 MMOL/L (135-145); eGFR 42 ML/MIN
[2019-10-10 06:36] LABS: CREATINE KINASE 5569 U/L (39-308)
[2019-10-10 07:39] LABS: TOTAL CELLS COUNTED 100
[2019-10-10 07:41] LABS: PLATELET ESTIMATE DECREASED; POLYCHROMASIA FEW
[2019-10-10] MEDS: citalopram 20mg tablet PO SCH (08:00)
[2019-10-10] MEDS: silver sulfadiazine cream 400gm jar TP SCH (08:00)
[2019-10-10] MEDS: heparin, porcine 5000 units/ml vial SQ SCH ×2 (08:00→20:00)
[2019-10-10] MEDS: magnesium Cl slow-release 64mg tablet PO PRN ×2 (08:24→17:47)
[2019-10-10] MEDS: diltiazem CD 120mg capsule (once-daily) PO SCH (08:24)
[2019-10-10] MEDS: docusate sod 100mg capsule PO SCH ×2 (08:27→21:00)
[2019-10-10] MEDS: famotidine 20mg tablet PO SCH ×2 (08:27→21:00)
[2019-10-10] MEDS: lactobacillus rhamnosus 10,000 MMU CELLS/CAPSULE PO SCH ×2 (08:27→21:00)
[2019-10-10] MEDS: gabapentin 100mg capsule PO SCH ×3 (08:27→21:00)
[2019-10-10] MEDS: CefTRIAXone 2gm/D5W 50ml 50 ML IV SCH (08:28)
[2019-10-10] MEDS: HYDROcodone/acetaminophen 10/325mg tab PO PRN ×3 (08:43→22:46)
[2019-10-10 11:00] VITALS: BP 167/66
[2019-10-10 15:00] VITALS: BP 178/87
--- NOTE | 2019-10-10 15:16 | NUR ---
Manual BP of 188/90, pt denies CP/headache,etc. Notified Carly Tamez FEATHER RENOVATOR, she will review pt's chart and place orders as is appropriate. Carly requested that RN administer pain medication if pt is in pain. [place] 10 given for pain 05/27.
[2019-10-10] MEDS: SODIUM BICARBONATE IV SCH (15:59)
[2019-10-10] MEDS: SODIUM CHLORIDE 0.45% IV SCH (15:59)
[2019-10-10 17:00] VITALS: BP 144/77
[2019-10-10 18:00] VITALS: BP 144/77
--- NOTE | 2019-10-10 18:27 | NUR ---
Problems reprioritized. Patient report given, questions answered & plan of care reviewed with Joanne ALLAN.
[2019-10-10] MEDS: tamsulosin 0.4mg capsule PO SCH (21:00)
[2019-10-10 22:00] VITALS: BP 165/82
[2019-10-11 02:00] VITALS: BP 148/70
--- NOTE | 2019-10-11 06:23 | NUR ---
Problems reprioritized. Patient report given, questions answered & plan of care reviewed with Cynthia ALLAN and Beba ALLAN.
[2019-10-11 06:28] LABS: BASOPHILS % (AUTO) 0.4 % (0-1); EOSINOPHILS # (AUTO) 0.6 X10'3 (0-0.9); EOSINOPHILS % (AUTO) 7.2 % (0-6); HEMATOCRIT 31.8 % (42.0-52.0); HEMOGLOBIN 10.9 g/dl (14.0-17.9); LYMPHOCYTES # (AUTO) 1.3 X10'3 (1.1-4.8); LYMPHOCYTES % (AUTO) 15.9 % (21-51); MEAN CORPUSCULAR HEMOGLOBIN 32.2 PG (27.0-31.0); MEAN CORPUSCULAR HGB CONC 34.3 g/dL (33.0-36.5); MEAN CORPUSCULAR VOLUME 93.8 FL (78-98); MEAN PLATELET VOLUME 8.6 FL (7.4-10.4); MONOCYTES # (AUTO) 1.4 X10'3 (0-0.9); MONOCYTES % (AUTO) 17.5 % (2-12); NEUTROPHILS # (AUTO) 4.7 X10'3 (1.8-7.7); PLATELET COUNT 146 X10'3 (140-440); RED BLOOD COUNT 3.39 X10'6 (4.70-6.10); RED CELL DISTRIBUTION WIDTH 13.6 % (11.5-14.5); WHITE BLOOD COUNT 7.9 X10'3 (4.5-11.0)
--- NOTE | 2019-10-11 06:33 | NUR ---
Patient in room PCU 3024. I have received report from Joanne ALLAN and had the opportunity to ask questions and assume patient care. Patient awake in bed. No complaints at this time. All immediate needs met.
--- NOTE | 2019-10-11 06:34 | NUR ---
Patient in room U 3024. I have received report from SANJANA Rubio and had the opportunity to ask questions and assume patient care. Patient awake in bed and in no acute distress.
[2019-10-11 06:39] LABS: ALANINE AMINOTRANSFERASE 174 U/L (12-78); ALBUMIN 2.3 G/DL (3.4-5.0); ALBUMIN/GLOBULIN RATIO 0.7 (1.1-1.5); ALKALINE PHOSPHATASE 69 IU/L (46-116); ANION GAP 6 (8-16); ASPARTATE AMINO TRANSFERASE 145 U/L (10-37); BILIRUBIN,TOTAL 0.2 MG/DL (0.1-1.0); BLOOD UREA NITROGEN 34 MG/DL (7-18); CALCIUM 8.7 MG/DL (8.5-10.1); CHLORIDE 101 MMOL/L (99-107); CREATININE 1.48 MG/DL (0.60-1.10); GLUCOSE 123 MG/DL (70-104); MAGNESIUM 1.2 MG/DL (1.5-2.4); PHOSPHORUS 3.6 MG/DL (2.3-4.5); POTASSIUM 3.8 MMOL/L (3.5-5.1); SODIUM 141 MMOL/L (135-145); TOTAL CARBON DIOXIDE 33.7 MMOL/L (24-32); TOTAL PROTEIN 5.5 G/DL (6.4-8.2); eGFR 54 ML/MIN
[2019-10-11 07:00] VITALS: BP 169/82
[2019-10-11] MEDS: CefTRIAXone 2gm/D5W 50ml 50 ML IV SCH (07:53)
[2019-10-11] MEDS: diltiazem CD 120mg capsule (once-daily) PO SCH (07:54)
[2019-10-11] MEDS: famotidine 20mg tablet PO SCH ×2 (07:55→20:51)
[2019-10-11] MEDS: docusate sod 100mg capsule PO SCH ×2 (07:55→20:51)
[2019-10-11] MEDS: gabapentin 100mg capsule PO SCH ×2 (07:55→12:31)
[2019-10-11] MEDS: lactobacillus rhamnosus 10,000 MMU CELLS/CAPSULE PO SCH ×2 (07:55→20:51)
[2019-10-11] MEDS: magnesium Cl slow-release 64mg tablet PO PRN ×2 (07:56→20:52)
[2019-10-11] MEDS: silver sulfadiazine cream 400gm jar TP SCH (07:59)
[2019-10-11] MEDS: citalopram 20mg tablet PO SCH (07:59)
[2019-10-11] MEDS: heparin, porcine 5000 units/ml vial SQ SCH ×2 (07:59→20:00)
[2019-10-11] MEDS ORDERED: amLODIPine 5mg tablet PO ONE (09:20)
[2019-10-11] MEDS: SODIUM CHLORIDE 0.45% IV SCH (09:55)
[2019-10-11] MEDS: SODIUM BICARBONATE IV SCH (09:55)
[2019-10-11] MEDS: HYDROcodone/acetaminophen 10/325mg tab PO PRN ×2 (10:14→20:57)
[2019-10-11 10:23] LABS: CREATINE KINASE 1923 U/L (39-308)
[2019-10-11 11:00] VITALS: BP 136/78
[2019-10-11 15:00] VITALS: BP 160/77
--- NOTE | 2019-10-11 17:20 | NUR ---
[place]ee documentation: I have reviewed and agree with all interventions, assessments performed and documented by SANJANA Yoder. [place] Medication Administration: For this medication-pass time frame, all medication were reviewed, dispensed, administered and documented per hospital policy by Beba ALLAN.
[2019-10-11 18:00] VITALS: BP 176/87
--- NOTE | 2019-10-11 18:16 | NUR ---
Problems reprioritized. Patient report given, questions answered & plan of care reviewed with SANJANA Miller. Patient stable at transfer of care.
--- NOTE | 2019-10-11 18:16 | NUR ---
Problems reprioritized. Patient report given, questions answered & plan of care reviewed with Angela RN. Patient stable at transfer of care.
[2019-10-11] MEDS: tamsulosin 0.4mg capsule PO SCH (20:51)
[2019-10-11] MEDS: gabapentin 300mg capsule PO SCH (20:52)
[2019-10-11 22:00] VITALS: BP 167/76
[2019-10-12] VITALS (7 sets, daily range): BP systolic 137–182; BP diastolic 73–85
--- NOTE | 2019-10-12 01:28 | NUR ---
Patient in room PCU 3024. I have received report from Sapna Chung RN and Cynthia Aguilera RN and had the opportunity to ask questions and assume patient care.
[2019-10-12 05:18] LABS: BASOPHILS % (AUTO) 0.4 % (0-1); EOSINOPHILS # (AUTO) 0.7 X10'3 (0-0.9); HEMOGLOBIN 11.7 g/dl (14.0-17.9); LYMPHOCYTES # (AUTO) 1.5 X10'3 (1.1-4.8); LYMPHOCYTES % (AUTO) 17.4 % (21-51); MEAN CORPUSCULAR HEMOGLOBIN 32.5 PG (27.0-31.0); MEAN CORPUSCULAR HGB CONC 34.2 g/dL (33.0-36.5); MEAN PLATELET VOLUME 8.6 FL (7.4-10.4); MONOCYTES # (AUTO) 1.4 X10'3 (0-0.9); MONOCYTES % (AUTO) 15.3 % (2-12); NEUTROPHILS # (AUTO) 5.2 X10'3 (1.8-7.7); NEUTROPHILS % (AUTO) 58.9 % (42-75); PLATELET COUNT 128 X10'3 (140-440); RED BLOOD COUNT 3.58 X10'6 (4.70-6.10); RED CELL DISTRIBUTION WIDTH 13.6 % (11.5-14.5); WHITE BLOOD COUNT 8.9 X10'3 (4.5-11.0)
[2019-10-12 05:51] LABS: ALANINE AMINOTRANSFERASE 147 U/L (12-78); ALBUMIN 2.4 G/DL (3.4-5.0); ALBUMIN/GLOBULIN RATIO 0.7 (1.1-1.5); ALKALINE PHOSPHATASE 63 IU/L (46-116); ANION GAP 7 (8-16); ASPARTATE AMINO TRANSFERASE 92 U/L (10-37); BILIRUBIN,TOTAL 0.3 MG/DL (0.1-1.0); BLOOD UREA NITROGEN 29 MG/DL (7-18); BUN/CREATININE RATIO 23.2 (5.4-32.0); CALCIUM 9.2 MG/DL (8.5-10.1); CHLORIDE 104 MMOL/L (99-107); CREATININE 1.25 MG/DL (0.60-1.10); GLUCOSE 88 MG/DL (70-104); MAGNESIUM 1.2 MG/DL (1.5-2.4); PHOSPHORUS 4.3 MG/DL (2.3-4.5); SODIUM 141 MMOL/L (135-145); TOTAL CARBON DIOXIDE 29.6 MMOL/L (24-32); TOTAL PROTEIN 5.8 G/DL (6.4-8.2); eGFR 65 ML/MIN
[2019-10-12 05:53] LABS: POTASSIUM 4.6 MMOL/L (3.5-5.1)
[2019-10-12 05:56] LABS: BANDS% (MANUAL) 1 % (0-10); NEUTROPHILS % (MANUAL) 62 % (42-75); TOTAL CELLS COUNTED 100
[2019-10-12 05:57] LABS: EOSINOPHILS % (MANUAL) 7 % (0-6); LYMPHOCYTES % (MANUAL) 15 % (21-51); METAMYLEOCYTES% (MANUAL) 1 % (0-0); MONOCYTES % (MANUAL) 12 % (2-12); PLATELET ESTIMATE DECREASED; REACTIVE LYMPHOCYTES % 2 % (0-0)
--- NOTE | 2019-10-12 06:08 | NUR ---
Problems reprioritized. Patient report given, questions answered & plan of care reviewed with Sapna Chung RN and SANJANA Marie.
--- NOTE | 2019-10-12 06:11 | NUR ---
Problems reprioritized. Patient report given, questions answered & plan of care reviewed with Beba Chung RN and Cynthia Aguilera RN.
--- NOTE | 2019-10-12 06:20 | NUR ---
Patient in room PCU 3024. I have received report from Angela ALLAN and had the opportunity to ask questions and assume patient care. Patient asleep in bed. All immediate needs met at this time.
--- NOTE | 2019-10-12 06:52 | NUR ---
Patient in room PCU 3024. I have received report from SANJANA Miller and had the opportunity to ask questions and assume patient care. Patient resting comfortably and in no acute distress.
[2019-10-12] MEDS: heparin, porcine 5000 units/ml vial SQ SCH ×2 (08:00→20:00)
[2019-10-12] MEDS: docusate sod 100mg capsule PO SCH ×2 (08:00→20:30)
[2019-10-12] MEDS: citalopram 20mg tablet PO SCH (08:00)
[2019-10-12] MEDS: gabapentin 100mg capsule PO SCH ×2 (08:12→12:17)
[2019-10-12] MEDS: CefTRIAXone 2gm/D5W 50ml 50 ML IV SCH (08:12)
[2019-10-12] MEDS: diltiazem CD 120mg capsule (once-daily) PO SCH (08:15)
[2019-10-12] MEDS: amLODIPine 5mg tablet PO SCH (08:15)
[2019-10-12] MEDS: famotidine 20mg tablet PO SCH ×2 (08:15→20:30)
[2019-10-12] MEDS: lactobacillus rhamnosus 10,000 MMU CELLS/CAPSULE PO SCH ×2 (08:15→20:31)
[2019-10-12] MEDS: silver sulfadiazine cream 400gm jar TP SCH (08:16)
[2019-10-12] MEDS: HYDROcodone/acetaminophen 10/325mg tab PO PRN (13:33)
--- NOTE | 2019-10-12 14:36 | NUR ---
Removed 8 total sutures from the patient's neck.
--- NOTE | 2019-10-12 15:10 | NUR ---
PAGED [id number] IS REQUESTING TO SEE "VP SITE". SAYS HE HAS SOME NEW INFORMATION. EBONY [id number]. TY
--- NOTE | 2019-10-12 18:16 | NUR ---
Problems reprioritized. Patient report given, questions answered & plan of care reviewed with SANJANA Miller. Patient stable at transfer of care.
--- NOTE | 2019-10-12 18:16 | NUR ---
Problems reprioritized. Patient report given, questions answered & plan of care reviewed with SANJANA Miller. Patient stable at transfer of care.
--- NOTE | 2019-10-12 18:26 | NUR ---
Patient in room PCU 3024. I have received report from Beba ALLAN and Cynthia RN and had the opportunity to ask questions and assume patient care.
--- NOTE | 2019-10-12 18:28 | NUR ---
Problems reprioritized. Patient report given, questions answered & plan of care reviewed with Angela RN. Patient stable at transfer of care.
[2019-10-12] MEDS ORDERED: magnesium 4gm in 100ml NS 100 ML IV PRN (20:25)
[2019-10-12] MEDS: gabapentin 300mg capsule PO SCH (20:31)
[2019-10-12] MEDS: tamsulosin 0.4mg capsule PO SCH (20:31)
[2019-10-12] MEDS: HYDROcodone/acetaminophen 5mg/325mg tablet PO PRN (20:41)
[2019-10-12] MEDS: magnesium Cl slow-release 64mg tablet PO PRN (23:08)
[2019-10-13 02:00] VITALS: BP 144/74
[2019-10-13 03:09] LABS: ALANINE AMINOTRANSFERASE 131 U/L (12-78); ALBUMIN 2.6 G/DL (3.4-5.0); ALBUMIN/GLOBULIN RATIO 0.7 (1.1-1.5); ALKALINE PHOSPHATASE 65 IU/L (46-116); ANION GAP 4 (8-16); ASPARTATE AMINO TRANSFERASE 72 U/L (10-37); BILIRUBIN,TOTAL 0.2 MG/DL (0.1-1.0); BLOOD UREA NITROGEN 33 MG/DL (7-18); CALCIUM 9.7 MG/DL (8.5-10.1); CHLORIDE 103 MMOL/L (99-107); CREATININE 1.18 MG/DL (0.60-1.10); GLUCOSE 91 MG/DL (70-104); MAGNESIUM 1.1 MG/DL (1.5-2.4); PHOSPHORUS 4.7 MG/DL (2.3-4.5); POTASSIUM 4.4 MMOL/L (3.5-5.1); SODIUM 138 MMOL/L (135-145); TOTAL CARBON DIOXIDE 31.2 MMOL/L (24-32); TOTAL PROTEIN 6.1 G/DL (6.4-8.2); eGFR 70 ML/MIN
--- NOTE | 2019-10-13 06:23 | NUR ---
Problems reprioritized. Patient report given, questions answered & plan of care reviewed with Cynthia Aguilera RN, and Beba ALLAN.
--- NOTE | 2019-10-13 06:34 | NUR ---
Patient in room U 3024. I have received report from SANJANA Miller and had the opportunity to ask questions and assume patient care. Patient snoring and sleeping comfortably in bed, and in no acute distress.
--- NOTE | 2019-10-13 06:35 | NUR ---
Patient in room PCU 3024. I have received report from Angela ALLAN and had the opportunity to ask questions and assume patient care. Patient asleep in bed.
[2019-10-13 07:00] VITALS: BP 130/71
[2019-10-13] MEDS: diltiazem CD 120mg capsule (once-daily) PO SCH (07:59)
[2019-10-13] MEDS: famotidine 20mg tablet PO SCH (07:59)
[2019-10-13] MEDS: lactobacillus rhamnosus 10,000 MMU CELLS/CAPSULE PO SCH (07:59)
[2019-10-13] MEDS: gabapentin 100mg capsule PO SCH (07:59)
[2019-10-13] MEDS: heparin, porcine 5000 units/ml vial SQ SCH (08:00)
[2019-10-13] MEDS: amLODIPine 5mg tablet PO SCH (08:00)
[2019-10-13] MEDS: magnesium Cl slow-release 64mg tablet PO PRN (08:00)
[2019-10-13] MEDS: docusate sod 100mg capsule PO SCH (08:00)
[2019-10-13] MEDS: citalopram 20mg tablet PO SCH (08:00)
[2019-10-13] MEDS: silver sulfadiazine cream 400gm jar TP SCH (08:02)
[2019-10-13] MEDS ORDERED: SILV20CR13 TP (09:02)
[2019-10-13] MEDS ORDERED: CARCD120C PO (09:02)
[2019-10-13] MEDS ORDERED: tamsulosin capsule PO (09:02)
[2019-10-13] MEDS ORDERED: LORA-269 PO (09:02)
[2019-10-13] MEDS ORDERED: GABA300C PO (09:02)
[2019-10-13] MEDS ORDERED: HYDR-4353 PO ×2 (09:02→09:17)
--- NOTE | 2019-10-13 09:16 | NUR ---
Reassessment: VICTOR M resolved and rhabdomyolysis resolving per MD notes. Pt continues with 75-100% PO intake on renal diet meeting nutrient needs. L[facility] 10/11. Pt with routine Colace however he refuses at times per med list. Will continue to follow. Recommendations: 1) Continue renal diet with advancement to regular as medically indicated as renal function improves 2) Monitor need for ONS/additional protein 3) Routine bowel care 4) Wt per rx Addendum: 10/13/19 at [address] Amended: Links added.
[2019-10-13] MEDS ORDERED: ATI1T PO (09:17)
[2019-10-13 11:00] VITALS: BP 128/77
--- NOTE | 2019-10-13 12:34 | NUR ---
Patient stable for discharge per MD orders. All discharge instructions and all questions answered. New prescriptions called into [facility] in [place]. PIV discontinued. Arm band off. library monitor discontinued. Belongings collected and sent with patient. Wound care supplies given to patient for his wound care. Patient picked up by private vehicle and wheeled to lobby.
--- NOTE | 2019-10-14 09:19 | NUR ---
Called in discharge medications per Dr Sims's orders to the [facility] pharmacy in [place]. Patient aware.
== END 2019-10-13 12:34 | disposition home or self-care (01) | DRG 351 ==
LOC: ER 04:21 → ED HOLD 06:26 → CICU 2S 08:28 → PCU 3S 10-07 14:31
PROVIDERS: ATTEND Internal Medicine Critical Care Medicine
PROC: 0HQ4XZZ Repair Neck Skin, External Approach (ICD-10-PCS; principal; 2019-10-05)
PROC: 3E0234Z Introduction of Serum, Toxoid and Vaccine into Muscle, Percutaneous Approach (ICD-10-PCS; 2019-10-05)
DX: T79.6XXA Traumatic ischemia of muscle, initial encounter (principal); N17.0 Acute kidney failure with tubular necrosis; S11.91XA Laceration without foreign body of unspecified part of neck, initial encounter; T20.10XA Burn of first degree of head, face, and neck, unspecified site, initial encounter; J45.909 Unspecified asthma, uncomplicated; B19.20 Unspecified viral hepatitis C without hepatic coma; T21.10XA Burn of first degree of trunk, unspecified site, initial encounter; T22.231A Burn of second degree of right upper arm, initial encounter; E86.0 Dehydration; F15.10 Other stimulant abuse, uncomplicated; I10 Essential (primary) hypertension; F12.90 Cannabis use, unspecified, uncomplicated; R33.9 Retention of urine, unspecified; N13.9 Obstructive and reflux uropathy, unspecified; F32.9 Major depressive disorder, single episode, unspecified; X99.1XXA Assault by knife, initial encounter; F41.9 Anxiety disorder, unspecified; S80.01XA Contusion of right knee, initial encounter; S80.02XA Contusion of left knee, initial encounter; Z79.899 Other long term (current) drug therapy; Z23 Encounter for immunization; Y93.G3 Activity, cooking and baking; Y92.89 Other specified places as the place of occurrence of the external cause; Z88.5 Allergy status to narcotic agent; Z59.0 Homelessness
CPT/HCPCS: 12002; 36415; 71045; 76775; 76937; 80053; 80069; 80305; 80320; 81001; 82330; 82550; 82570; 82948; 83605; 83735; 83880; 84100; 84145; 84156; 84300; 85025; 85610; 85730; 87040; 87077; 87081; 87186; 87207; 90471; 90715; 93005; 96365; 96375; 99291; G0378; J0610; J0696; J1644; J2060; J2270; J7120